=== PATIENT | female | born 1975 ===

== ENCOUNTER 2017-09-19 19:22 | Emergency (ER) | payer BC ==
[~2017-09-19 19:22] MED LIST: CHOL4PAC15 PO; DIPH25TA64 PO; LITC450 PO; MULT-1379 PO; OLAN5TAB25 PO; OLAN5TAB27 PO; ZIPR20CA24 PO
--- NOTE | 2017-09-19 19:30 | ER Report ---
History and Physical Time Seen By MD: 19:30 HPI/ROS CHIEF COMPLAINT: Hallucinations HISTORY OF PRESENT ILLNESS: This is a 42-year-old female who presents to the emergency department with her for hallucinations. Patient states that over the last couple of weeks she's had some auditory hallucinations after more discussions she saying that she is having visual hallucinations as well. None of these are telling her to harm herself however they have become more frequent over the last couple days, this is when her was made aware. These hallucinations 1st developed this last fall according to her . She was seen in the behavioral health unit 2 times for these hallucinations was given some Zyprexa she is still currently taking Zyprexa. She stopped having hallucinations for "a while". Her has given her 15 mg today with no relief. According to the they were staying at a hotel [facility] and were planning on leaving early tomorrow morning for the airport so that the patient could fly back to [place] and stay with her mother and father to help with these hallucinations and mental health concerns. The states that she wandered out into the [place] and was just standing there and he finally convinced her to come back to the room and then while she was laying in the bed she began to have these "twitching" episodes where she would sort of convulse, like an involuntary sit up, he became more concerned and decided to bring her in for further evaluation. Patient is making intermittent eye contact while I'm in the room. She has no other concerns or complaints no aches chills no chest pain or shortness of breath. REVIEW OF SYSTEMS: Respiratory: No cough, no dyspnea. Cardiovascular: No chest pain, no palpitations. Gastrointestinal: No vomiting, no abdominal pain. Musculoskeletal: No back pain. Psych: As above. Allergies: Coded Allergies: Penicillins (Verified Allergy, Unknown, 05/18/17) Sulfa (Sulfonamide Antibiotics) (Verified Allergy, Unknown, 05/18/17) folic acid (Verified Allergy, Unknown, 05/18/17) mold (Verified Allergy, Unknown, 05/18/17) shellfish derived (Verified Allergy, Unknown, 05/18/17) Home Meds Reported Medications Lowrey Carbonate (LITHIUM CARBONATE) 450 Mg Tabcr, 450 MG PO QPM 09/19/17 Olanzapine (ZYPREXA) 5 Mg Tablet, 12.5 MG PO QHS 05/25/17 Olanzapine (OLANZAPINE) 5 Mg Tablet, 2.5 MG PO PRN Y for PSYCHOSIS ZYPREXA 05/25/17 Diphenhydramine HCl (Total Allergy) 25 Mg Tablet, 25-50 TAB PO HS TAKE 25 MG AT BEDTIME. YOU MAY TAKE AN ADDITIONAL 25 MG IF NEEDED FOR INSOMNIA. 05/19/17 Discontinued Reported Medications [place]rey Carbonate (LITHIUM CARBONATE) 450 Mg Tabcr, 450 MG PO BID ESKALITH CR 05/11/17 Past Medical/Surgical History The patient has a past medical and surgical history of seizures, "skipped heart beats", back pain, enlarged thyroid, bipolar disorder, anxiety, left arm repair. Reviewed Nurses Notes: Yes Hx Smoking: No Smoking Status: Never Smoker Exposure to Second Hand Smoke?: No Hx Substance Use Disorder: No Hx Alcohol Use: Yes Constitutional Vital Sign - Last 24 Hours 09/19/17 09/19/17 09/19/17 09/19/17 19:30 19:30 19:37 19:52 Temp 98.7 Pulse 96 90 98 Resp 16 B/P (MAP) 140/94 140/94 (109) Pulse Ox 98 95 95 O2 Delivery Room Air 09/19/17 09/19/17 09/19/17 09/19/17 19:57 20:12 20:27 20:32 Pulse 90 86 109 Pulse Ox 94 95 93 95 09/19/17 09/19/17 09/19/17 09/19/17 20:37 20:40 20:47 20:52 Pulse 108 90 B/P (MAP) 138/91 (107) 135/92 (106) Pulse Ox 94 96 09/19/17 09/19/17 21:00 21:20 Pulse 103 B/P (MAP) 126/96 (106) Pulse Ox 100 Physical Exam General Appearance: The patient is alert, has no immediate need for airway protection and no current signs of toxicity. Eyes: Pupils equal and round no injection. Respiratory: Chest is non tender, lungs are clear to auscultation. Cardiac: regular rate and rhythm. Gastrointestinal: Abdomen is soft and non tender, no masses, bowel sounds normal. Musculoskeletal: Neck: Neck is supple and non tender. Extremities have full range of motion and are non tender. Skin: No rashes or lesions. Psych: Making periodic eye contact, will close her eyes and not interact for moments at a time. Having moment where she will "twitch" her body while laying supine, like she is try to sit up. She will then sit up and "twitch" forward like "someone is pushing". DIFFERENTIAL DIAGNOSIS: After history and physical exam differential diagnosis was considered for psychosis including but not limited to chronic psychosis, medication noncompliance, medication side effect, depression and illicit drug use. Medical Decision Making Data Points Result Diagram: 09/19/17200309/19/172003 Laboratory Hematology Test 09/19/17 19:28 09/19/17 20:04 Urine Color Yellow Urine Clarity Clear Urine pH 7.0 pH (4.8-9.5) Urine Specific [place] 1.008 Urine Protein Negative mg/dL (NEGATIVE) Urine Glucose (UA) Negative mg/dL (NEGATIVE) Urine Ketones Negative mg/dL (NEGATIVE) Urine Blood Negative (NEGATIVE) Urine Nitrite Negative (NEGATIVE) Urine Bilirubin Negative (NEGATIVE) Urine Urobilinogen Negative mg/dL (0.2-1.9) Urine Leukocyte Esterase Moderate (NEGATIVE) Urine RBC 3 /HPF (0-2/HPF) Urine WBC 1 /HPF (0-5/HPF) Urine Squamous Epithelial Cells Many /LPF (</=FEW) Urine Transitional Epithelial Cells Few /LPF (NONE-FEW) Urine Bacteria Negative /HPF (NONE-FEW) Urine Mucus None /HPF (NONE-FEW) Urine HCG, Qualitative Negative (NEGATIVE) Urine Opiates Screen Negative Urine Barbiturates Screen Negative Ur Tricyclic Antidepressants Screen Negative Urine Phencyclidine Screen Negative Urine Amphetamines Screen Negative Urine Benzodiazepines Screen Negative Urine Cocaine Screen Negative Urine Cannabinoids Screen Negative Red Blood Count 5.24 M/uL (4.17-5.56) Mean Corpuscular Volume 91.7 fL (80.0-96.0) Mean Corpuscular Hemoglobin 31.6 pg (26.0-33.0) Mean Corpuscular Hemoglobin Concent 34.4 g/dL (32.0-36.0) Red Cell Distribution Width 12.4 % (11.5-14.5) Mean Platelet Volume 7.3 fL (7.2-11.1) Neutrophils (%) (Auto) 72.6 % (39.4-72.5) Lymphocytes (%) (Auto) 20.2 % (17.6-49.6) Monocytes (%) (Auto) 5.2 % (4.1-12.4) Eosinophils (%) (Auto) 1.1 % (0.4-6.7) Basophils (%) (Auto) 0.9 % (0.3-1.4) Nucleated RBC Relative Count (auto) 0.0 /100WBC Neutrophils # (Auto) 7.1 K/uL (2.0-7.4) Lymphocytes # (Auto) 2.0 K/uL (1.3-3.6) Monocytes # (Auto) 0.5 K/uL (0.3-1.0) Eosinophils # (Auto) 0.1 K/uL (0.0-0.5) Basophils # (Auto) 0.1 K/uL (0.0-0.1) Nucleated RBC Absolute Count (auto) 0.00 K/uL Sodium Level 139 mmol/L (137-145) Potassium Level 3.7 mmol/L (3.5-5.0) Chloride Level 104 mmol/L (98-107) Carbon Dioxide Level 20 mmol/L (22-31) Blood Urea Nitrogen 5 mg/dl (7-18) Creatinine 0.80 mg/dl (0.52-1.04) Glomerular Filtration Rate Calc > 60.0 Random Glucose 104 mg/dl (75-110) Calcium Level 9.6 mg/dl (8.4-10.2) Magnesium Level 2.2 mg/dl (1.7-2.2) Total Bilirubin 0.7 mg/dl (0.2-1.3) Aspartate Amino Transf (AST/SGOT) 16 U/L (0-35) Alanine Aminotransferase (ALT/SGPT) 32 U/L (0-56) Alkaline Phosphatase 83 U/L (0-126) Total Protein 7.3 gm/dl (6.3-8.2) Albumin 4.7 g/dl (3.5-5.0) Salicylates Level < 10 mg/L Salicylate Last Dose Date unk Acetaminophen Level < 10 ug/ml Serum Alcohol < 10 mg/dl Chemistry Test 09/19/17 19:28 09/19/17 20:04 Urine Color Yellow Urine Clarity Clear Urine pH 7.0 pH (4.8-9.5) Urine Specific [place] 1.008 Urine Protein Negative mg/dL (NEGATIVE) Urine Glucose (UA) Negative mg/dL (NEGATIVE) Urine Ketones Negative mg/dL (NEGATIVE) Urine Blood Negative (NEGATIVE) Urine Nitrite Negative (NEGATIVE) Urine Bilirubin Negative (NEGATIVE) Urine Urobilinogen Negative mg/dL (0.2-1.9) Urine Leukocyte Esterase Moderate (NEGATIVE) Urine RBC 3 /HPF (0-2/HPF) Urine WBC 1 /HPF (0-5/HPF) Urine Squamous Epithelial Cells Many /LPF (</=FEW) Urine Transitional Epithelial Cells Few /LPF (NONE-FEW) Urine Bacteria Negative /HPF (NONE-FEW) Urine Mucus None /HPF (NONE-FEW) Urine HCG, Qualitative Negative (NEGATIVE) Urine Opiates Screen Negative Urine Barbiturates Screen Negative Ur Tricyclic Antidepressants Screen Negative Urine Phencyclidine Screen Negative Urine Amphetamines Screen Negative Urine Benzodiazepines Screen Negative Urine Cocaine Screen Negative Urine Cannabinoids Screen Negative White Blood Count 9.8 k/uL (4.5-11.0) Red Blood Count 5.24 M/uL (4.17-5.56) Hemoglobin 16.5 g/dL (12.0-16.0) Hematocrit 48.0 % (34.0-47.0) Mean Corpuscular Volume 91.7 fL (80.0-96.0) Mean Corpuscular Hemoglobin 31.6 pg (26.0-33.0) Mean Corpuscular Hemoglobin Concent 34.4 g/dL (32.0-36.0) Red Cell Distribution Width 12.4 % (11.5-14.5) Platelet Count 224 K/uL (150-450) Mean Platelet Volume 7.3 fL (7.2-11.1) Neutrophils (%) (Auto) 72.6 % (39.4-72.5) Lymphocytes (%) (Auto) 20.2 % (17.6-49.6) Monocytes (%) (Auto) 5.2 % (4.1-12.4) Eosinophils (%) (Auto) 1.1 % (0.4-6.7) Basophils (%) (Auto) 0.9 % (0.3-1.4) Nucleated RBC Relative Count (auto) 0.0 /100WBC Neutrophils # (Auto) 7.1 K/uL (2.0-7.4) Lymphocytes # (Auto) 2.0 K/uL (1.3-3.6) Monocytes # (Auto) 0.5 K/uL (0.3-1.0) Eosinophils # (Auto) 0.1 K/uL (0.0-0.5) Basophils # (Auto) 0.1 K/uL (0.0-0.1) Nucleated RBC Absolute Count (auto) 0.00 K/uL Glomerular Filtration Rate Calc > 60.0 Calcium Level 9.6 mg/dl (8.4-10.2) Magnesium Level 2.2 mg/dl (1.7-2.2) Total Bilirubin 0.7 mg/dl (0.2-1.3) Aspartate Amino Transf (AST/SGOT) 16 U/L (0-35) Alanine Aminotransferase (ALT/SGPT) 32 U/L (0-56) Alkaline Phosphatase 83 U/L (0-126) Total Protein 7.3 gm/dl (6.3-8.2) Albumin 4.7 g/dl (3.5-5.0) Salicylates Level < 10 mg/L Salicylate Last Dose Date unk Acetaminophen Level < 10 ug/ml Serum Alcohol < 10 mg/dl Toxicology Test 09/19/17 19:28 09/19/17 20:04 Urine Opiates Screen Negative Urine Barbiturates Screen Negative Ur Tricyclic Antidepressants Screen Negative Urine Phencyclidine Screen Negative Urine Amphetamines Screen Negative Urine Benzodiazepines Screen Negative Urine Cocaine Screen Negative Urine Cannabinoids Screen Negative Salicylates Level < 10 mg/L Salicylate Last Dose Date unk Acetaminophen Level < 10 ug/ml Serum Alcohol < 10 mg/dl Urinalysis Test 09/19/17 19:28 Urine Color Yellow Urine Clarity Clear Urine pH 7.0 pH (4.8-9.5) Urine Specific [place] 1.008 Urine Protein Negative mg/dL (NEGATIVE) Urine Glucose (UA) Negative mg/dL (NEGATIVE) Urine Ketones Negative mg/dL (NEGATIVE) Urine Blood Negative (NEGATIVE) Urine Nitrite Negative (NEGATIVE) Urine Bilirubin Negative (NEGATIVE) Urine Urobilinogen Negative mg/dL (0.2-1.9) Urine Leukocyte Esterase Moderate (NEGATIVE) Urine RBC 3 /HPF (0-2/HPF) Urine WBC 1 /HPF (0-5/HPF) Urine Squamous Epithelial Cells Many /LPF (</=FEW) Urine Transitional Epithelial Cells Few /LPF (NONE-FEW) Urine Bacteria Negative /HPF (NONE-FEW) Urine Mucus None /HPF (NONE-FEW) Urine HCG, Qualitative Negative (NEGATIVE) ED Course/Re-evaluation ED Course The patient was admitted to a room. A history physical obtained. Differential diagnoses were considered. The psych labs were drawn as well as a UA and drug screen. UA and drugs screen were unremarkable. The psychic reader did come down and speak with the patient and her . I did speak with Lucy Carrillo as noted below and she has accepted the patient into the behavioral health unit for auditory and visual hallucinations. Patient and her are in agreement with this plan of care and will be transferred to the behavioral health unit. Patient is resting comfortably at this time. 09/19/2017 9:28:37 pm I did speak with Lucy Carrillo who has agreed to admit the patient to behavioral health unit for auditory and visual hallucinations. I did update the patient and her and they are relieved. Decision to Disposition Date: Sep 19, 2017 Decision to Disposition Time: 21:28 Depart Departure Latest Vital Signs Vital Signs Date Time Temp Pulse Resp B/P (MAP) Pulse Ox O2 Delivery O2 Flow Rate FiO2 09/19/17 21:20 103 100 09/19/17 21:00 126/96 (106) 09/19/17 19:30 98.7 16 Room Air Impression: Primary Impression: Auditory hallucinations Additional Impression: Visual hallucinations Condition: Condition Unchanged Disposition: XFER TO [facility] Problem Qualifiers SANCHEZ NIEVES PROMOTION SPECIALIST-BC Sep 19, 2017 19:30
[2017-09-19] MEDS ORDERED: LITC450 PO (19:36)
[2017-09-19 20:13] LABS: PLATELET COUNT, AUTOMATED 224 K/uL (150-450)
[2017-09-19] MEDS ORDERED: LORazepam 1 MG TAB PO ONE (20:40)
[2017-09-19 21:00] VITALS: BP 126/96
== END 2017-09-19 21:51 ==
LOC: ER 19:26
DX: R44.0 Auditory hallucinations (principal); R44.1 Visual hallucinations; E04.9 Nontoxic goiter, unspecified; F41.9 Anxiety disorder, unspecified
CPT/HCPCS: 36415; 80305; 80320; 80329; 81001; 81025; 82040; 82247; 82310; 82374; 82435; 82565; 82947; 83735; 84075; 84132; 84155; 84295; 84443; 84450; 84460; 84520; 85025; 99285

== ENCOUNTER 2017-09-19 21:28 | Inpatient (IN) | payer BC ==
[~2017-09-19] VITALS: Ht 175.3 cm; Wt 81.6 kg
[2017-09-19 22:12] VITALS: BP 130/95
--- NOTE | 2017-09-19 22:20 | EKG ---
FACILITY: [facility] [place] PATIENT NAME: RAMILA CORONEL : 1975 MR: [id number] V: [id number] EXAM DATE: ORDERING PHYSICIAN: PANCHO MO TECHNOLOGIST: Ernesto Cochran Reason : Blood Pressure : / mmHG Vent. Rate : 096 BPM Atrial Rate : 096 BPM P-R Int : 132 ms QRS Dur : 082 ms QT Int : 544 ms P-R-T Axes : 067 068 065 degrees QTc Int : 687 ms Normal sinus rhythm Possible Left atrial enlargement Nonspecific T wave abnormality Prolonged QT Abnormal ECG When compared with ECG of 18-MAY-2017 23:06, Previous ECG has undetermined rhythm, needs review Non-specific change in ST segment in Anterior leads T wave inversion now evident in Anterior leads QT has lengthened Confirmed by CARLOS PINTO ([id number]) on 09/20/2017 7:35:24 AM Referred By: Confirmed By:CARLOS PINTO
[2017-09-19] MEDS ORDERED: ACETAMINOPHEN 325 MG TAB PO PRN (23:30)
[2017-09-19] MEDS ORDERED: LORazepam 1 MG TAB PO PRN ×2 (23:30)
[2017-09-19] MEDS ORDERED: MAG HYD/AL HYD/SIMETH 30ML UDC PO PRN (23:30)
[2017-09-19] MEDS ORDERED: diphenhydrAMINE 50 MG/ML VIAL IM PRN (23:30)
[2017-09-19] MEDS ORDERED: OLANZapine 10 MG VIAL IM ONLY PRN (23:30)
[2017-09-19] MEDS ORDERED: LORazepam 2 MG/ML VIAL IM PRN (23:30)
[2017-09-19] MEDS ORDERED: OLANZapine ZYDIS ODT 5MG TABDP PO PRN (23:30)
[2017-09-20 04:05] VITALS: BP 153/97
[2017-09-20 05:00] VITALS: BP 129/94
--- NOTE | 2017-09-20 05:28 | EKG ---
[place] [facility] [place] PATIENT NAME: RAMILA CORONEL : 1975 MR: [id number] V: [id number] EXAM DATE: ORDERING PHYSICIAN: PANCHO MO TECHNOLOGIST: Ernesto Cochran Reason : Blood Pressure : / mmHG Vent. Rate : 097 BPM Atrial Rate : 097 BPM P-R Int : 132 ms QRS Dur : 078 ms QT Int : 352 ms P-R-T Axes : 062 067 043 degrees QTc Int : 447 ms Normal sinus rhythm Diffuse non-specific T flattening When compared with ECG of 19-SEP-2017 22:02, QT has shortened Confirmed by CARLOS PINTO ([id number]) on 09/20/2017 7:37:30 AM Referred By: Confirmed By:CARLOS PINTO
[2017-09-20] MEDS: MULTIVITAMINS PO SCH (08:20)
[2017-09-20] MEDS: OLANZapine 5 MG TAB PO SCH ×2 (12:39→21:38)
[2017-09-20 13:47] VITALS: BP 136/84
[2017-09-20] MEDS ORDERED: OLANZapine ZYDIS ODT 5MG TABDP PO SCH (21:00)
[2017-09-20] MEDS: LITHIUM CARBONATE 450 MG TABCR PO SCH (21:38)
[2017-09-21 04:12] VITALS: BP 126/94
[2017-09-21] MEDS: MULTIVITAMINS PO SCH (08:21)
[2017-09-21] MEDS: OLANZapine 5 MG TAB PO SCH ×2 (08:21→21:09)
[2017-09-21] MEDS: TOPIRAMATE 25 MG TAB PO SCH (14:22)
--- NOTE | 2017-09-21 14:33 | BHS Progress Note ---
[facility] - Subjective Progress Notes Subjective Patient states she is feeling somewhat better today overall, with less intrusive hallucinations. Patient very dysphoric when talking of her relationship with her , and potential separation from him. Patient cooperative on the unit, and does not want to change current dose of zyprexa, or lithium. Patient has a history of headaches and will start Topamax at 50mg QAM, additional benefits may include mood stability, and anxiety relief. Will also start Benadryl at qhs low dose for sleep. G[place]HAM lab pending. Suicidal Ideation: None Homicidal Ideation: None [facility] - Objective Mental Status Exam General Appearance: Casual, Well Groomed, Good Eye Contact, Cooperative, Polite , Good Interaction, Tearful, Psychomotor Agitation, No Psychomotor Retardation, Bizarre Mannerisms (at times), No Tics Speech: Clear, Spontaneous, Normal Rate, Normal Rhythm, Normal Volume, Normal Tone, No Delayed, No Slurred, No Garbled, No Rambling, No Inappropriate Mood: Dysthmic/Depressed (variable) Affect: Calm, Flat, No Withdrawn, Tearful (at times), Anxious, No Agitated Thought Process: Organized, No Loose Associations, No Flight of Ideas Thought Content: No Suicidal Ideation, No Homicidal Ideation, Delusions ( grandiose), Auditory Halllucinations, No Visual Hallucinations (denies today ), No Thought Broadcasting, No Ideas of Reference, No Obsessions, No Compulsions Sensorium: Clear Cognition: Alert & Oriented-Person, Alert & Oriented-Place, Alert & Oriented- Time, [id number]-[id number] Memory: Immediate, Recent, Remote Intelligence: Average Insight Judgment: Fair (improving) [facility] Assessment and Plan [id number] Encounter Date: Sep 21, 2017 [id number] Encounter Time: 14:30 [facility] Plan: Necessary Precautions, Individual/Group Therapy, Admin/Titrate Meds, Educate Patient Tobacco Medications: Not Appropriate Condition Multpiple Antipsychotics Used: No Problems: (1) Bipolar disorder, curr episode mixed, severe, with psychotic features Status: Chronic (2) Partner relational problem Status: Chronic Condition 1. continue treatment. 2. will start Topamax. 3. father in route. EVELYNE BROWN MD Sep 21, 2017 14:33
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
[2017-09-21] MEDS: LITHIUM CARBONATE 450 MG TABCR PO SCH (21:09)
[2017-09-21] MEDS: diphenhydrAMINE 25 MG CAP PO SCH (21:09)
[2017-09-21 21:40] VITALS: BP 130/90
[2017-09-22 04:29] VITALS: BP 150/96
[2017-09-22] MEDS: MULTIVITAMINS PO SCH (08:11)
[2017-09-22] MEDS: TOPIRAMATE 25 MG TAB PO SCH (08:11)
[2017-09-22] MEDS: OLANZapine 5 MG TAB PO SCH (08:12)
[2017-09-22 08:25] VITALS: BP 135/81
--- NOTE | 2017-09-22 12:48 | BHS Progress Note ---
[facility] - Subjective Progress Notes Subjective Patient continues to improve, with lessening of interfering auditory hallucinations overall, Interacting well with Father present for treatment team meeting, agrees to take increase in Zyprexa tonight to promote sleep. Manic episode with mixed features continues, but improvement occurring. not present during treatment team meeting. Patient will likely discharge into care of parent at time of discharge and may go to stay with parents out of state for a time. Suicidal Ideation: None Homicidal Ideation: None S - Objective Physical Exam Vital Signs Hematology Test 09/19/17 00:00 09/20/17 05:28 [place] Level 0.7 mmol/L (0.6-1.2) Troponin I < 0.012 ng/ml Free Thyroxine 1.42 ng/dl (0.78-2.19) Chemistry Test 09/19/17 00:00 09/20/17 05:28 [place] Level 0.7 mmol/L (0.6-1.2) Troponin I < 0.012 ng/ml Free Thyroxine 1.42 ng/dl (0.78-2.19) Toxicology Test 09/19/17 00:00 [place] Level 0.7 mmol/L (0.6-1.2) Vital Signs Date Time Temp Pulse Resp B/P (MAP) Pulse Ox O2 Delivery O2 Flow Rate FiO2 09/22/17 08:25 98.0 53 135/81 (99) 98 Room Air 09/22/17 04:29 16 Muscle Strength and Tone: WNL Gait and Station: Steady [facility] Medications Reviewed: Side Effects, Benefits of Medication, Risks Allergies Reviewed: Yes Mental Status Exam General Appearance: Casual, Well Groomed, Good Eye Contact, Cooperative, Polite , Good Interaction, No Tearful, No Psychomotor Agitation, No Psychomotor Retardation, Bizarre Mannerisms (at times), No Tics Speech: Clear, Spontaneous, Normal Rate, Normal Rhythm, Normal Volume, Normal Tone, No Delayed, No Slurred, No Garbled, No Rambling, No Inappropriate Mood: Dysthmic/Depressed (variable) Affect: Calm, Flat, No Withdrawn, No Tearful, Anxious, No Agitated Thought Process: Organized, Goal Directed (will travel with Father), No Loose Associations, No Flight of Ideas Thought Content: No Suicidal Ideation, No Homicidal Ideation, Delusions ( grandiose), Auditory Halllucinations (less today), No Visual Hallucinations ( denies today ), No Thought Broadcasting, No Ideas of Reference, No Obsessions, No Compulsions Sensorium: Clear Cognition: Alert & Oriented-Person, Alert & Oriented-Place, Alert & Oriented- Time, [id number]-Abhkwkbxg Memory: Immediate, Recent, Remote Intelligence: Average Insight Judgment: Fair (improving) [facility] Assessment and Plan [id number] Encounter Date: Sep 22, 2017 [id number] Encounter Time: 10:30 [facility] Plan: Necessary Precautions, Individual/Group Therapy, Admin/Titrate Meds, Educate Patient Tobacco Medications: Not Appropriate Condition Multpiple Antipsychotics Used: No Problems: (1) Bipolar disorder, curr episode mixed, severe, with psychotic features Status: Chronic (2) Partner relational problem Status: Chronic Condition 1. continue treatment 2. increase zyprexa QHS to 20mg 3. prepare for potential discharge to care of Father, possible tomorrow. EEVLYNE BROWN MD Sep 22, 2017 12:48
[2017-09-22] MEDS: diphenhydrAMINE 25 MG CAP PO SCH (20:46)
[2017-09-22] MEDS: LITHIUM CARBONATE 450 MG TABCR PO SCH (20:46)
[2017-09-22] MEDS ORDERED: OLANZapine 5 MG TAB PO SCH (21:00)
[2017-09-23 06:44] VITALS: BP 138/108
[2017-09-23] MEDS: OLANZapine 5 MG TAB PO SCH (08:16)
[2017-09-23] MEDS: TOPIRAMATE 25 MG TAB PO SCH (08:16)
[2017-09-23] MEDS: MULTIVITAMINS PO SCH (08:18)
[2017-09-23] MEDS ORDERED: MULT-1379 PO (08:53)
[2017-09-23] MEDS ORDERED: TOPI-119 PO (08:55)
--- NOTE | 2017-09-24 22:42 | DISCHARGE SUMMARY ---
DATE OF ADMISSION: September 19, 2017 DATE OF DISCHARGE: September 23, 2017 This patient was seen on the morning of 23 September 2017 at approximately 0815 hours for this dictation. FINAL DIAGNOSES 1. Bipolar disorder, recent manic, severe, with psychotic features and mixed features. 2. Rule out delusional disorder. 3. Partner relational problem ongoing. 4. The patient is having a supportive relationship with father. REASON FOR ADMISSION This is a 42-year-old female, becoming somewhat well known to this unit. The patient was presenting to the Emergency Room in a state of auditory hallucinations. The patient was admitted without incident, admitting that she went off her medications that were given on the last visit in May 2017 at times, and symptoms would return. The patient also was indicating ongoing partner relational problem at home, the patient becoming very tearful when talking about the possibility of wanting a divorce from her of 20-some years. It was notable that the patient's was not available for treatment team meetings as well, and the patient would describe meetings with her at night during visiting hours as "not going well." The patient's father drove from out of state to meet with the patient. His intention was to have the patient come live with her parents at time of discharge, and this was arranged. The patient's psychosis continued to improve. The patient has underlying delusional content of hyperreligiosity and "God telling me to be a saint." However, these were not intrusive at time of discharge, and the patient had stabilized on the use of lithium and Zyprexa. PHYSICAL EXAMINATION Please see emergency room note. Notable for: GENERAL: A 42-year-old female in no acute medical distress. PSYCHIATRIC: Voicing complaints of ongoing auditory hallucinations. Strange behaviors at times were noticed that were inconsistent in many ways with a purely psychotic process. VITAL SIGNS: At time of admission, temperature 98.7, pulse 96, respiratory rate 16, blood pressure 140/94, pulse oximetry 89% on room air. At time of discharge from the Behavioral Health Unit, vital signs showed temperature 98.6, pulse 125, respiratory rate 16, blood pressure 138/108, and pulse oximetry 95% on room air. LABORATORY DATA Troponins drawn on the unit were undetectable. Free T4 was 1.42, free T3 was 3.37, and TSH was 2.42, all within normal range. [place] level on September 192017 , noted to be 0.7, and [place] reference lab to rule out lupus was unremarkable. CBC upon admission notable for hemoglobin 16.5 and elevated and hematocrit 58.0 and elevated. Chemistry panel unremarkable. Urinalysis did show moderate leukocyte esterase present. The patient was asymptomatic. One white blood cells, many squamous epithelial cells, and no urine bacteria. Toxicology screen negative with an undetectable serum alcohol level at time of admission. MENTAL STATUS EXAMINATION AT TIME OF DISCHARGE GENERAL APPEARANCE, BEHAVIOR, AND ATTITUDE: This is a polite, 42-year-old female making good eye contact. No bizarre mannerisms or tics. No periods of tearfulness. No psychomotor agitation or retardation. SPEECH: Largely within normal limits. Regular rate, rhythm, volume, and tone. MOOD: Described as good. AFFECT: Constricted still, but mostly full and mood congruent on day of discharge. THOUGHT PROCESSES: Appeared goal directed. The patient indicated an understanding of traveling with her father out of state. Overall logical. No gross loose associations or flight of ideas. THOUGHT CONTENT: The patient is reporting intrusive thoughts in the form of auditory hallucinations. Overvalued orthodox ideas had calmed to the point of tolerance. She was denying ideas of reference and thought broadcasting. The patient was having underlying likely delusions of orthodox grandeur, the patient stating that she thought God was preparing her for sainthood. No compulsions. The patient was denying suicidal or homicidal ideation. SENSORIUM: Clear. COGNITION: Alert and oriented to person, place, time, and situation. MEMORY: Immediate, recent, and remote estimated intact. INTELLIGENCE: Average based on interview. INSIGHT AND JUDGMENT: Considered grossly intact and appropriate for ongoing outpatient management. RESULTS OF TESTING IMAGING: None. LABORATORY DATA: See above. CONSULTATIONS None. TREATMENT The patient received medications and participated in individual and group therapy. HOSPITAL COURSE The patient overall was very cooperative throughout her stay, however, demonstrating a symptom set that was likely the product of a multifactorial problem, including potential underlying delusional disorder, bipolar disorder which the patient has long been treated for, as well as partner relational problem. The patient continued to slowly improve. CONDITION OF PATIENT ON DISCHARGE Stable. Considered a minimal risk to herself or others and appropriate for outpatient care. She will be accompanied by her father and will live with her parents for a time. DISPOSITION The patient discharged to the care of her father. She would follow up in [place] upon arrival there where she would be staying with her parents. The patient would get a lithium trough level in two weeks as well. Upon return to [place], it was highly recommended that the patient and her attend marital counseling as well. The patient would take medications as prescribed. She was given the crisis line should symptoms arise. Risks, benefits, and alternatives of above discharge plan were discussed. Informed consent was given to proceed with the above discharge plan by this competent patient as well as the patient's father present at time of discharge. DISCHARGE MEDICATIONS 1. Benadryl 25 to 50 mg [id number] at bedtime. 2. Eskalith CR 900 mg at bedtime. 3. Multivitamin with minerals daily. 4. Topamax 50 mg daily for headache. 5. Zyprexa, the patient would take 5 mg p.r.n. q.6 hours for agitation and psychosis, and the patient would continue Zyprexa 20 mg at bedtime. MTDD
== END 2017-09-23 09:33 | disposition home or self-care (01) | DRG 885 ==
LOC: BHS 21:28
PROVIDERS: ADMIT Registered Nurse Psychiatric/Mental Health, Adult; ATTEND Registered Nurse Psychiatric/Mental Health, Adult
DX: F31.64 Bipolar disorder, current episode mixed, severe, with psychotic features (principal); F22 Delusional disorders; Z63.0 Problems in relationship with spouse or partner; Z81.1 Family history of alcohol abuse and dependence; Z77.120 Contact with and (suspected) exposure to mold (toxic); Z88.0 Allergy status to penicillin; Z88.2 Allergy status to sulfonamides; Z91.013 Allergy to seafood; Z90.49 Acquired absence of other specified parts of digestive tract
CPT/HCPCS: 36415; 80178; 84439; 84481; 84484; 86038; 90853; 93005; Q0163

== ENCOUNTER 2018-02-11 17:04 | Emergency (ER) | payer BC ==
[~2018-02-11 17:04] MED LIST changes: +TOPI-119 PO
--- NOTE | 2018-02-11 17:14 | ER Report ---
History and Physical Time Seen By MD: 17:13 HPI/ROS CHIEF COMPLAINT: Nausea, vomiting and diarrhea HISTORY OF PRESENT ILLNESS: This is a 42-year-old female presents to the emergency department for nausea, vomiting and diarrhea. Patient states that today she developed some nausea vomiting and diarrhea. Patient states that she' s also had 2 syncopal episodes, her was present for one the episodes. According to the patient was "out" for about 5 seconds came to, was alert and oriented, no headaches. No chest pain or shortness breath. No rashes, no recent illnesses. No fevers or chills. The patient states that she thinks this is related to eating a "duck egg" she states that the same thing happened last year after eating a duck egg. REVIEW OF SYSTEMS: Constitutional: No fever, no chills. Eyes: No discharge. ENT: No sore throat. Cardiovascular: No chest pain, no palpitations. Respiratory: No cough, no shortness of breath. Gastrointestinal: As above. Genitourinary: No hematuria. Musculoskeletal: No back pain. Skin: No rashes. Neurological: As above. Allergies: Coded Allergies: Penicillins (Verified Allergy, Unknown, 02/11/18) Sulfa (Sulfonamide Antibiotics) (Verified Allergy, Unknown, 02/11/18) mold (Verified Allergy, Unknown, 02/11/18) shellfish derived (Verified Allergy, Unknown, 02/11/18) Home Meds Active Scripts Ondansetron (ZOFRAN ODT) 4 Mg Tab.rapdis, 4 MG PO Q6H Y for NAUSEA/VOMITING, # 20 TAB.DEBBIE 0 Refills Prov:SANCHEZ NIEVES ASSET ANALYST- 02/11/18 Reported Medications [place] Carbonate (LITHIUM CARBONATE) 450 Mg Tabcr, 900 MG PO QHS 09/19/17 Olanzapine (ZYPREXA) 5 Mg Tablet, 5 MG PO Q6H Y for AGITATION/PSYCHOSIS TAKE 5MG NEEDED FOR AGGITATION OR PSYCHOSIS EVERY 6 HOURS 05/25/17 Olanzapine (OLANZAPINE) 5 Mg Tablet, 20 MG PO QHS ZYPREXA 05/25/17 Diphenhydramine HCl (Total Allergy) 25 Mg Tablet, 25-50 TAB PO HS TAKE 25 MG AT BEDTIME. YOU MAY TAKE AN ADDITIONAL 25 MG IF NEEDED FOR INSOMNIA. 05/19/17 Discontinued Reported Medications Topiramate (TOPAMAX) 25 Mg Tablet, 50 MG PO QDAY 09/23/17 Multivits,Th W-Fe,Other Min (THERA-M) 1 Each Tablet, 1 EACH PO QDAY 09/23/17 Past Medical/Surgical History The patient has a past medical and surgical history of seizures, irregular heartbeat, enlarged thyroid, bipolar, depression, left forearm surgery. Reviewed Nurses Notes: Yes Hx Smoking: Yes Smoking Status: Former Smoker, Light Tobacco Smoker Exposure to Second Hand Smoke?: No Hx Substance Use Disorder: No Hx Alcohol Use: Yes Constitutional Vital Sign - Last 24 Hours 02/11/18 02/11/18 02/11/18 02/11/18 17:13 17:15 17:30 18:54 Temp 97.4 Pulse 90 96 98 Resp 16 20 23 B/P (MAP) 148/109 137/100 (112) 112/75 (87) Pulse Ox 94 94 93 O2 Delivery Room Air 02/11/18 19:00 Pulse 92 Resp 21 B/P (MAP) 117/72 (87) Pulse Ox 94 Intake and Output 02/11/18 02/11/18 02/12/18 15:00 23:00 07:00 Intake Total 2000 ml Balance 2000 ml Physical Exam General Appearance: The patient is alert, has no immediate need for airway protection and no signs of toxicity. Eyes: Pupils equal and round no pallor or injection. ENT, Mouth: Mucous membranes are moist. Respiratory: There are no retractions, lungs are clear to auscultation. Cardiovascular: Regular rate and rhythm, no murmurs, clicks or rubs. Gastrointestinal: Abdomen is soft and non tender, no masses, hypoactive bowel sounds. Neurological: Alert and oriented 4. Moving all extremities. Following all commands. No focal neuro deficits. Skin: Warm and dry, no rashes. Musculoskeletal: Neck is supple non tender. Extremities are nontender, nonswollen and have full range of motion. DIFFERENTIAL DIAGNOSIS: After history and physical exam differential diagnosis was considered for nausea and vomiting including but not limited to gastroenteritis, gastritis, appendicitis, and medication side effect. Medical Decision Making Data Points Result Diagram: 02/11/18 1750 02/11/18 1730 Laboratory Hematology Test 02/11/18 17:30 02/11/18 17:50 Sodium Level 138 mmol/L (137-145) Potassium Level 3.6 mmol/L (3.5-5.0) Chloride Level 105 mmol/L (98-107) Carbon Dioxide Level 20 mmol/L (22-31) Blood Urea Nitrogen 9 mg/dl (7-18) Creatinine 0.80 mg/dl (0.52-1.04) Glomerular Filtration Rate Calc > 60.0 Random Glucose 130 mg/dl (75-110) Calcium Level 9.4 mg/dl (8.4-10.2) Total Bilirubin 0.6 mg/dl (0.2-1.3) Aspartate Amino Transf (AST/SGOT) 25 U/L (0-35) Alanine Aminotransferase (ALT/SGPT) 24 U/L (0-56) Alkaline Phosphatase 60 U/L (0-126) Troponin I < 0.012 ng/ml Total Protein 7.3 g/dl (6.3-8.2) Albumin 4.8 g/dl (3.5-5.0) Lipase 125 U/L (23-300) Human Chorionic Gonadotropin, Qual Negative (NEGATIVE) [place] Level 0.5 mmol/L (0.6-1.2) Red Blood Count 5.17 M/uL (4.17-5.56) Mean Corpuscular Volume 92.5 fL (80.0-96.0) Mean Corpuscular Hemoglobin 31.9 pg (26.0-33.0) Mean Corpuscular Hemoglobin Concent 34.5 g/dL (32.0-36.0) Red Cell Distribution Width 12.4 % (11.5-14.5) Mean Platelet Volume 7.3 fL (7.2-11.1) Neutrophils (%) (Auto) 89.4 % (39.4-72.5) Lymphocytes (%) (Auto) 5.7 % (17.6-49.6) Monocytes (%) (Auto) 3.7 % (4.1-12.4) Eosinophils (%) (Auto) 0.8 % (0.4-6.7) Basophils (%) (Auto) 0.4 % (0.3-1.4) Nucleated RBC Relative Count (auto) 0.0 /100WBC Neutrophils # (Auto) 14.2 K/uL (2.0-7.4) Lymphocytes # (Auto) 0.9 K/uL (1.3-3.6) Monocytes # (Auto) 0.6 K/uL (0.3-1.0) Eosinophils # (Auto) 0.1 K/uL (0.0-0.5) Basophils # (Auto) 0.1 K/uL (0.0-0.1) Nucleated RBC Absolute Count (auto) 0.00 K/uL Urine Color Yellow Urine Clarity Slightly-cloudy Urine pH 5.0 pH (4.8-9.5) Urine Specific [place] 1.020 Urine Protein 30 mg/dL (NEGATIVE) Urine Glucose (UA) Negative mg/dL (NEGATIVE) Urine Ketones Trace mg/dL (NEGATIVE) Urine Blood Negative (NEGATIVE) Urine Nitrite Negative (NEGATIVE) Urine Bilirubin Negative (NEGATIVE) Urine Urobilinogen Negative mg/dL (0.2-1.9) Urine Leukocyte Esterase Small (NEGATIVE) Urine RBC 1 /HPF (0-2/HPF) Urine WBC 2 /HPF (0-5/HPF) Urine Squamous Epithelial Cells Many /LPF (</=FEW) Urine Bacteria Negative /HPF (NONE-FEW) Urine Hyaline Casts Many /LPF (NONE-FEW) Urine Mucus Few /HPF (NONE-FEW) Chemistry Test 02/11/18 17:30 02/11/18 17:50 Glomerular Filtration Rate Calc > 60.0 Calcium Level 9.4 mg/dl (8.4-10.2) Total Bilirubin 0.6 mg/dl (0.2-1.3) Aspartate Amino Transf (AST/SGOT) 25 U/L (0-35) Alanine Aminotransferase (ALT/SGPT) 24 U/L (0-56) Alkaline Phosphatase 60 U/L (0-126) Troponin I < 0.012 ng/ml Total Protein 7.3 g/dl (6.3-8.2) Albumin 4.8 g/dl (3.5-5.0) Lipase 125 U/L (23-300) Human Chorionic Gonadotropin, Qual Negative (NEGATIVE) [place] Level 0.5 mmol/L (0.6-1.2) White Blood Count 15.8 k/uL (4.5-11.0) Red Blood Count 5.17 M/uL (4.17-5.56) Hemoglobin 16.5 g/dL (12.0-16.0) Hematocrit 47.8 % (34.0-47.0) Mean Corpuscular Volume 92.5 fL (80.0-96.0) Mean Corpuscular Hemoglobin 31.9 pg (26.0-33.0) Mean Corpuscular Hemoglobin Concent 34.5 g/dL (32.0-36.0) Red Cell Distribution Width 12.4 % (11.5-14.5) Platelet Count 203 K/uL (150-450) Mean Platelet Volume 7.3 fL (7.2-11.1) Neutrophils (%) (Auto) 89.4 % (39.4-72.5) Lymphocytes (%) (Auto) 5.7 % (17.6-49.6) Monocytes (%) (Auto) 3.7 % (4.1-12.4) Eosinophils (%) (Auto) 0.8 % (0.4-6.7) Basophils (%) (Auto) 0.4 % (0.3-1.4) Nucleated RBC Relative Count (auto) 0.0 /100WBC Neutrophils # (Auto) 14.2 K/uL (2.0-7.4) Lymphocytes # (Auto) 0.9 K/uL (1.3-3.6) Monocytes # (Auto) 0.6 K/uL (0.3-1.0) Eosinophils # (Auto) 0.1 K/uL (0.0-0.5) Basophils # (Auto) 0.1 K/uL (0.0-0.1) Nucleated RBC Absolute Count (auto) 0.00 K/uL Urine Color Yellow Urine Clarity Slightly-cloudy Urine pH 5.0 pH (4.8-9.5) Urine Specific [place] 1.020 Urine Protein 30 mg/dL (NEGATIVE) Urine Glucose (UA) Negative mg/dL (NEGATIVE) Urine Ketones Trace mg/dL (NEGATIVE) Urine Blood Negative (NEGATIVE) Urine Nitrite Negative (NEGATIVE) Urine Bilirubin Negative (NEGATIVE) Urine Urobilinogen Negative mg/dL (0.2-1.9) Urine Leukocyte Esterase Small (NEGATIVE) Urine RBC 1 /HPF (0-2/HPF) Urine WBC 2 /HPF (0-5/HPF) Urine Squamous Epithelial Cells Many /LPF (</=FEW) Urine Bacteria Negative /HPF (NONE-FEW) Urine Hyaline Casts Many /LPF (NONE-FEW) Urine Mucus Few /HPF (NONE-FEW) Toxicology Test 02/11/18 17:30 [place] Level 0.5 mmol/L (0.6-1.2) Urinalysis Test 02/11/18 17:50 Urine Color Yellow Urine Clarity Slightly-cloudy Urine pH 5.0 pH (4.8-9.5) Urine Specific [place] 1.020 Urine Protein 30 mg/dL (NEGATIVE) Urine Glucose (UA) Negative mg/dL (NEGATIVE) Urine Ketones Trace mg/dL (NEGATIVE) Urine Blood Negative (NEGATIVE) Urine Nitrite Negative (NEGATIVE) Urine Bilirubin Negative (NEGATIVE) Urine Urobilinogen Negative mg/dL (0.2-1.9) Urine Leukocyte Esterase Small (NEGATIVE) Urine RBC 1 /HPF (0-2/HPF) Urine WBC 2 /HPF (0-5/HPF) Urine Squamous Epithelial Cells Many /LPF (</=FEW) Urine Bacteria Negative /HPF (NONE-FEW) Urine Hyaline Casts Many /LPF (NONE-FEW) Urine Mucus Few /HPF (NONE-FEW) EKG/Imaging EKG Interpretation 12 lead EKG: Time of EKG 1726. Rhythm: Normal sinus rhythm, ventricular rate 97 bpm. [place]: normal QRS: normal ST segments: No ST depression or elevation identified. Imaging Location: [facility] - [place] Patient: Dnaielle Irvin : 1975 Visit/Account:[id number] Date of Sevice: 02/11/2018 2 VIEWS CHEST INDICATION: Syncopal episode COMPARISON: May 04, 2017. FINDINGS: Heart size within normal limits. There is no focal infiltrate or lobar consolidation. There is no pneumothorax or pleural effusion. IMPRESSION: 1. No acute cardiopulmonary process. Report Dictated By: Rob Watters MD at 02/11/2018 6:01 PM Report E-Signed By: Rob Watters MD at 02/11/2018 6:01 PM WSN:[id number] ED Course/Re-evaluation Clinical Indication for ER IV: Hydration, IV Access ED Course The patient was admitted to room. A history and physical were obtained. Different diagnoses were considered. An IV was started. A CBC, CMP, lipase, troponin were obtained. CBC showing white count of 15.8, hemoglobin 16.5, hematocrit 47.8, chemistry unremarkable. Negative troponin. [place] level just below normal, no toxicity. UA showing trace ketones, many squamous epithelial cells, negative urine bacteria and many Hylan casts, likely contaminated and showing slight dehydration. EKG showing normal sinus rhythm. Negative two-view chest. A 1 L normal saline bolus was given 2. 4 mg IV Zofran 2. The patient stated that she is feeling much better. I did review all the laboratory studies , EKG and chest x-ray with patient. I did tell her that I don't have a clear explanation as to why she had the nausea and vomiting and diarrhea, I did tell her however as she had an episode similar to this last year after eating a duck egg, I recommended that she no longer try eating duck eggs. Patient had no syncopal episodes while in the ER. I also told patient that the syncopal episodes could be secondary to the stress of vomiting, no evidence of acute abnormalities on EKG or chest x-ray. Did recommend the patient try a clear liquid diet for the next 12-24 hours. I also recommended the patient follow up with her primary care provider if no improvement next week, return to the emergency department for any other concerns worsening symptoms. Patient was in agreement with this plan of care and discharged home. Decision to Disposition Date: Feb 11, 2018 Decision to Disposition Time: 19:40 Depart Departure Latest Vital Signs Vital Signs Date Time Temp Pulse Resp B/P (MAP) Pulse Ox O2 Delivery O2 Flow Rate FiO2 02/11/18 19:00 92 21 117/72 (87) 94 02/11/18 17:13 97.4 Room Air Impression: Primary Impression: Nausea and vomiting in adult Additional Impressions: Diarrhea Syncope Condition: Improved Disposition: HOME OR SELF-CARE New Scripts Ondansetron (ZOFRAN ODT) 4 Mg Tab.rapdis 4 MG PO Q6H Y for NAUSEA/VOMITING, #20 TAB.DEBBIE 0 Refills Prov: SUNSANCHEZ BRENNAN ASSET ANALYST-BC 02/11/18 Patient Instructions: Acute Diarrhea (ED), Acute Nausea and Vomiting (ED), Syncope (ED) Additional Instructions: I recommend a clear liquid diet for the next 12-24 hours then slowly progress into a regular diet. Take the Zofran as needed for nausea and vomiting. I'm unsure as to what caused the nausea, vomiting and diarrhea, however I would suggest avoiding duck eggs in the future. Follow-up with your primary care provider as needed. Return to the emergency department for any other concerns or worsening symptoms. Problem Qualifiers Additional Impressions: Diarrhea Diarrhea type: unspecified type Qualified Codes: R19.7 - Diarrhea, unspecified SANCHEZ NIEVES ASSET ANALYST- Feb 11, 2018 17:14
[2018-02-11] MEDS ORDERED: NS(*) 0.9% 1000 ML BAG 1,000 ML IV ONE ×2 (17:17→18:35)
[2018-02-11] MEDS ORDERED: ONDANSETRON 4 MG/2 ML VIAL IVP ONE ×2 (17:20→18:35)
--- NOTE | 2018-02-11 18:05 | RADIOLOGY IMAGING REPORT ---
FACILITY: [facility] [place] PATIENT NAME: Danielle Irvin : 1975 MR: [id number] V: [id number] EXAM DATE: ORDERING PHYSICIAN: SANCHEZ NIEVES TECHNOLOGIST: Location: [facility] - [place] Patient: Danielle Irvin : 1975 Visit/Account:[id number] Date of Sevice: 02/11/2018 2 VIEWS CHEST INDICATION: Syncopal episode COMPARISON: May 04, 2017. FINDINGS: Heart size within normal limits. There is no focal infiltrate or lobar consolidation. There is no pneumothorax or pleural effusion. IMPRESSION: 1. No acute cardiopulmonary process. Report Dictated By: Rob Watters MD at 02/11/2018 6:01 PM Report E-Signed By: Rob Watters MD at 02/11/2018 6:01 PM WSN:[id number]
[2018-02-11 18:08] LABS: PLATELET COUNT, AUTOMATED 203 K/uL (150-450)
--- NOTE | 2018-02-11 18:27 | EKG ---
FACILITY: [facility] PATIENT NAME: RAMILA CORONEL : 1975 MR: [id number] V: [id number] EXAM DATE: ORDERING PHYSICIAN: SANCHEZ NIEVES TECHNOLOGIST: Test Reason : Blood Pressure : / mmHG Vent. Rate : 097 BPM Atrial Rate : 098 BPM P-R Int : 152 ms QRS Dur : 082 ms QT Int : 372 ms P-R-T Axes : 055 049 048 degrees QTc Int : 472 ms Normal sinus rhythm Borderline ECG When compared with ECG of 20-SEP-2017 05:22, No significant change was found Confirmed by Matt Eddy ([id number] on 02/11/2018 10:47:56 PM Referred By: Confirmed By:Matt Hull
[2018-02-11] MEDS ORDERED: ONDA4TAB PO (19:11)
[2018-02-11 19:30] VITALS: BP 118/81
== END 2018-02-11 19:48 | disposition home or self-care (01) ==
LOC: ER 17:17
DX: R11.2 Nausea with vomiting, unspecified (principal); R19.7 Diarrhea, unspecified; R55 Syncope and collapse
CPT/HCPCS: 36415; 71046; 80178; 81001; 83690; 84484; 84703; 85025; 93005; 96361; 96374; 96376; 99284; J2405; J7030; 82040; 82247; 82310; 82374; 82435; 82565; 82947; 84075; 84132; 84155; 84295; 84450; 84460; 84520